=== PATIENT | female | born 1985 | race American Indian/Alaskan Native ===

== ENCOUNTER 2017-07-07 09:26 | Emergency (ER) | payer SELFPAY ==
[2017-07-07 09:38] VITALS: BP 141/84
--- NOTE | 2017-07-07 10:50 | XRay Report ---
LEFT ELBOW THREE VIEWS: 07/07/17 09:26:00 CLINICAL: Pain. FINDINGS: Normal bones, joints and soft tissues. No fracture or dislocation. No joint effusion. IMPRESSION: Normal.
--- NOTE | 2017-07-07 10:51 | XRay Report ---
XRAY LEFT SHOULDER THREE VIEWS: 07/07/17 09:26:00 CLINICAL: Pain FINDINGS: No fracture or dislocation. Normal glenohumeral joint. Normal AC joint. The soft tissues are normal. IMPRESSION: Normal.
--- NOTE | 2017-07-07 10:51 | XRay Report ---
XRAY LEFT HUMERUS TWO VIEWS: 07/07/17 10:00:00 CLINICAL: Pain. FINDINGS: No fracture or dislocation. Normal alignment at the shoulder and elbow. Normal soft tissues. IMPRESSION: Normal.
[2017-07-07] MEDS ORDERED: MOTRIN PO ONE (11:06)
--- NOTE | 2017-07-07 11:35 | Emergency Department Report ---
ED Upper Extremity Inj HPI - General Chief Complaint: Extremity Injury, Upper Stated Complaint: LEFT ARM PAIN Time Seen by Provider: 07/07/17 11:05 Source: patient Mode of arrival: Ambulatory Limitations: No Limitations - History of Present Illness Initial Comments: 31-year-old -[place] female comes in complaining of left shoulder and left arm pain. Patient reports that she fell at home this morning and landed on her left side. Patient reports she hit up against her before frame and fail. She denies hitting her head no nausea no vomiting no loss of consciousness. She reports that her last middle finger is mildly swollen but able to move all fingers. She'll reports a history of asthma no allergies to medications. MD Complaint: Injury to:: left -: hour(s) (3) Other Extremity Injury: Elbow: Left, Arm: Left, Shoulder: Left Place: home Severity scale (0 -10): 10 Improves With: none Worsens With: movement of extremity Context: fall Associated Symptoms: numbness (left hand) - Related Data Previous Rx's Medication Instructions Recorded Last Taken Type Ibuprofen 600 mg PO Q8H 10 Days #30 tablet 07/07/17 Unknown Rx Allergies Allergy/AdvReac Type Severity Reaction Status Date / Time No Known Allergies Allergy Unverified 07/07/17 09:37 ED Review of Systems ROS: Stated complaint: LEFT ARM PAIN Other details as noted in HPI Constitutional: denies: chills, fever Eyes: denies: eye pain, eye discharge, vision change ENT: denies: ear pain, throat pain Respiratory: denies: cough, shortness of breath, wheezing Cardiovascular: denies: chest pain, palpitations Endocrine: no symptoms reported Gastrointestinal: denies: abdominal pain, nausea, diarrhea Genitourinary: denies: urgency, dysuria, discharge Musculoskeletal: arthralgia Skin: denies: rash, lesions Neurological: numbness (left fingers) Psychiatric: denies: anxiety, depression Hematological/Lymphatic: denies: easy bleeding, easy bruising ED Past Medical Hx - Past Medical History Hx Asthma: Yes - Surgical History Past Surgical History?: No - Social History Smoking Status: Current Every Day Smoker Substance Use Type: Alcohol, Marijuana - Medications Home Medications: Home Medications Medication Instructions Recorded Confirmed Last Taken Type Ibuprofen 600 mg PO Q8H 10 Days #30 tablet 07/07/17 Unknown Rx ED Physical Exam - General Limitations: No Limitations General appearance: alert, in no apparent distress - Head Head exam: Present: atraumatic, normocephalic - Eye Eye exam: Present: normal appearance - Respiratory Respiratory exam: Present: normal lung sounds bilaterally. Absent: respiratory distress - Expanded Upper Extremity Exam Left Shoulder Exam: Present: normal inspection, tenderness (anterior and posterior), tenderness over AC joint. Absent: swelling, abrasion, laceration, ecchymosis, deformity, crepidus, dislocation, erythema Upper Arm exam: Present: normal inspection, tenderness. Absent: swelling, abrasion, laceration, ecchymosis, deformity Elbow exam: Present: normal inspection, full ROM. Absent: tenderness, swelling , abrasion, laceration, ecchymosis, deformity Forearm Wrist exam: Present: normal inspection, full ROM Hand Wrist exam: Present: full ROM, tenderness (left middle finger), swelling ( left middle finger), abrasion (left middle finger). Absent: ecchymosis, deformity, crepidus, dislocation Neuro motor exam: Present: wrist extension intact, thumb opposition intact, thumb IP flexion intact, thumb adduction intact, fingers 2-5 abduction intact Neurosensory exam: Present: 2-point discrimination, radial nerve intact, ulnar nerve intact, median nerve intact Vascular: Present: normal capillary refill - Neurological Exam Neurological exam: Present: alert, oriented X3, CN II-XII intact ED Course Vital Signs 07/07/17 09:33 Temperature 98.5 F Pulse Rate 100 H Respiratory 20 Rate Blood Pressure 141/84 O2 Sat by Pulse 100 Oximetry ED Medical Decision Making - Radiology Data Radiology results: report reviewed, image reviewed normal. - Medical Decision Making Patient has been evaluated by this provider fast track. X-ray was done for left humerus left shoulder and left elbow. Which all came out normal. Ibuprofen 600 mg with given the patient for pain managements. I will refer her to orthopedics for possible further evaluation. Patient may need a MRI to r /o out a tear. Patient will be discharged home on ibuprofen 600 mg every 8 hours when necessary. As well as a referral to orthopedics. Patient verbalized understanding Critical care attestation.: If time is entered above; I have spent that time in minutes in the direct care of this critically ill patient, excluding procedure time. ED Disposition Clinical Impression: Left shoulder strain Qualifiers: Encounter type: sequela Qualified Code(s): S46.912S - Strain of unspecified muscle, fascia and tendon at shoulder and upper arm level, left arm, sequela Fall Qualifiers: Encounter type: initial encounter Qualified Code(s): W19.XXXA - Unspecified fall, initial encounter Disposition: TO HOME OR SELFCARE Is pt being admited?: No Does the pt Need Aspirin: No Condition: Stable Instructions: Fall Prevention (ED), Rotator Cuff Injury (ED) Additional Instructions: Take pain medication as prescribed. Follow-up with orthopedic I referred to Dr. Jesse Salazar. Please wear sling for support. Prescriptions: Ibuprofen 600 mg PO Q8H 10 Days #30 tablet Referrals: DANIELLE MOYA MD [Primary Care Provider] - 3-5 Days JESSE SALAZAR MD [Staff Physician] - 3-5 Days Forms: Work/School Release Form(ED)
== END 2017-07-07 12:15 | disposition home or self-care (01) ==
LOC: ED 09:26
DX: S46.912A Strain of unspecified muscle, fascia and tendon at shoulder and upper arm level, left arm, initial encounter (principal); J45.909 Unspecified asthma, uncomplicated; F17.200 Nicotine dependence, unspecified, uncomplicated; F12.10 Cannabis abuse, uncomplicated; W01.10XA Fall on same level from slipping, tripping and stumbling with subsequent striking against unspecified object, initial encounter; Y93.89 Activity, other specified; Y92.009 Unspecified place in unspecified non-institutional (private) residence as the place of occurrence of the external cause; Y99.8 Other external cause status
CPT/HCPCS: 81025; 99284

== ENCOUNTER 2017-08-03 22:32 | Emergency (ER) | payer SELFPAY ==
[2017-08-04 00:54] LABS: Basophils % (Auto) 0.5 % (0.0-1.8); Eosinophils # (Auto) 0.1 K/mm3 (0.0-0.4); Eosinophils % (Auto) 1.3 % (0.0-4.3); Hematocrit 36.2 % (30.3-42.9); Hemoglobin 12.3 gm/dl (10.1-14.3); Lymphocytes # (Auto) 2.8 K/mm3 (1.2-5.4); Lymphocytes % (Auto) 36.2 % (13.4-35.0); Mean Corpuscular HGB Conc 34 % (30-34); Mean Corpuscular Hemoglobin 33 pg (28-32); Mean Corpuscular Volume 98 fl (79-97); Monocytes # (Auto) 0.5 K/mm3 (0.0-0.8); Monocytes % (Auto) 6.4 % (0.0-7.3); Platelet Count 155 K/mm3 (140-440)
[2017-08-04 01:21] LABS: BUN/Creatinine Ratio 22; Blood Urea Nitrogen 13 mg/dL (7-17); Calcium 9.2 mg/dL (8.4-10.2); Hemolysis Index 33
[2017-08-04 01:39] LABS: Bilirubin,Urine NEG (Negative); Blood,Urine LG (Negative); Color,Urine Yellow (Yellow); Mucus,Urine 2+ /HPF; Nitrite,Urine NEG (Negative)
[2017-08-04 01:41] LABS: RBC,Urine > 182.0 /HPF (0.0-6.0)
[2017-08-04 06:09] VITALS: BP 124/86
--- NOTE | 2017-08-04 06:18 | Emergency Department Report ---
ED General Adult HPI - General Chief complaint: Vaginal Bleeding Stated complaint: VAG BLEED, LEG SWELLING Time Seen by Provider: 08/04/17 06:15 Source: patient Mode of arrival: Ambulatory Limitations: No Limitations - History of Present Illness Initial comments: Patient with irregular vaginal bleeding. She also stated that she had some milky discharge from her breasts. She is lying comfortably with her family in her gurney without complaint now. 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 She denies vaginal discharge. -: days(s) Consistency: now resolved Improves with: none Worsens with: none Associated Symptoms: denies other symptoms - Related Data Previous Rx's Medication Instructions Recorded Last Taken Type Ibuprofen 600 mg PO Q8H 10 Days #30 tablet 07/07/17 Unknown Rx Nitrofurantoin Monohyd/M-Cryst 100 mg PO BID #14 capsule 08/04/17 Unknown Rx [Macrobid 100 mg Capsule] Allergies Allergy/AdvReac Type Severity Reaction Status Date / Time No Known Allergies Allergy Unverified 07/07/17 09:37 ED Review of Systems ROS: Stated complaint: VAG BLEED, LEG SWELLING Other details as noted in HPI Constitutional: denies: chills, fever Eyes: denies: eye pain, eye discharge, vision change ENT: denies: ear pain, throat pain Respiratory: denies: cough, shortness of breath, wheezing Cardiovascular: denies: chest pain, palpitations Endocrine: no symptoms reported Gastrointestinal: denies: abdominal pain, nausea, diarrhea Genitourinary: as per HPI, abnormal menses. denies: urgency, dysuria, discharge Musculoskeletal: denies: back pain, joint swelling, arthralgia Skin: denies: rash, lesions Neurological: denies: headache, weakness, paresthesias Psychiatric: denies: anxiety, depression Hematological/Lymphatic: denies: easy bleeding, easy bruising ED Past Medical Hx - Past Medical History Hx Asthma: Yes - Surgical History Past Surgical History?: No - Social History Smoking Status: Current Every Day Smoker Substance Use Type: None, Marijuana - Medications Home Medications: Home Medications Medication Instructions Recorded Confirmed Last Taken Type Ibuprofen 600 mg PO Q8H 10 Days #30 tablet 07/07/17 Unknown Rx Nitrofurantoin Monohyd/M-Cryst 100 mg PO BID #14 capsule 08/04/17 Unknown Rx [Macrobid 100 mg Capsule] ED Physical Exam - General Limitations: No Limitations General appearance: alert, in no apparent distress - Head Head exam: Present: atraumatic, normocephalic - Eye Eye exam: Present: normal appearance. Absent: scleral icterus - ENT ENT exam: Present: mucous membranes moist - Neck Neck exam: Present: normal inspection - Respiratory Respiratory exam: Present: normal lung sounds bilaterally. Absent: respiratory distress - Cardiovascular Cardiovascular Exam: Present: regular rate, normal rhythm. Absent: systolic murmur, diastolic murmur, rubs, gallop - GI/Abdominal GI/Abdominal exam: Present: soft, normal bowel sounds. Absent: distended, tenderness, guarding, rebound, rigid - Extremities Exam Extremities exam: Present: normal inspection - Back Exam Back exam: Present: normal inspection - Neurological Exam Neurological exam: Present: alert, oriented X3, CN II-XII intact. Absent: motor sensory deficit - Psychiatric Psychiatric exam: Present: normal affect, normal mood - Skin Skin exam: Present: warm, dry, intact, normal color. Absent: rash ED Course Vital Signs 08/04/17 08/04/17 08/04/17 00:18 01:07 06:06 Temperature 98.3 F 98.4 F Pulse Rate 67 67 Respiratory 16 20 20 Rate Blood Pressure 129/87 Blood Pressure 124/86 [Right] O2 Sat by Pulse 100 100 Oximetry ED Medical Decision Making - Lab Data Result diagrams: 08/04/17 00:37 08/04/17 00:37 Laboratory Results - last 24 hr 08/04/17 08/04/17 08/04/17 00:37 00:37 00:37 WBC 7.8 RBC 3.70 Hgb 12.3 Hct 36.2 MCV 98 H MCH 33 H MCHC 34 RDW 13.0 L Plt Count 155 Lymph % (Auto) 36.2 H [place] % (Auto) 6.4 Eos % (Auto) 1.3 Baso % (Auto) 0.5 Lymph # 2.8 [place] # 0.5 Eos # 0.1 Baso # 0.0 Seg Neutrophils % 55.6 Seg Neutrophils # 4.3 Sodium Potassium Chloride Carbon Dioxide Anion Gap BUN Creatinine Estimated GFR BUN/Creatinine Ratio Glucose Calcium HCG, Qual Negative Urine Color Urine Turbidity Urine pH Ur Specific [place] Urine Protein Urine Glucose (UA) Urine Ketones Urine Blood Urine Nitrite Urine Bilirubin Urine Urobilinogen Ur Leukocyte Esterase Urine WBC (Auto) Urine RBC (Auto) U Epithel Cells (Auto) Urine Mucus Blood Type B POSITIVE Antibody Screen Negative 08/04/17 08/04/17 00:37 00:59 WBC RBC Hgb Hct MCV MCH MCHC RDW Plt Count Lymph % (Auto) [place] % (Auto) Eos % (Auto) Baso % (Auto) Lymph # [place] # Eos # Baso # Seg Neutrophils % Seg Neutrophils # Sodium 141 Potassium 3.9 Chloride 102.0 Carbon Dioxide 25 Anion Gap 18 BUN 13 Creatinine 0.6 L Estimated GFR > 60 BUN/Creatinine Ratio 22 Glucose 86 Calcium 9.2 HCG, Qual Urine Color Yellow Urine Turbidity Slightly-cloudy Urine pH 6.0 Ur Specific [place] 1.025 Urine Protein 100 mg/dl Urine Glucose (UA) Neg Urine Ketones Neg Urine Blood Lg Urine Nitrite Neg Urine Bilirubin Neg Urine Urobilinogen 2.0 Ur Leukocyte Esterase Tr Urine WBC (Auto) 18.0 H Urine RBC (Auto) > 182.0 U Epithel Cells (Auto) 3.0 Urine Mucus 2+ Blood Type Antibody Screen Critical care attestation.: If time is entered above; I have spent that time in minutes in the direct care of this critically ill patient, excluding procedure time. ED Disposition Clinical Impression: Dysfunctional uterine bleeding, Galactorrhea UTI (urinary tract infection) Qualifiers: Urinary tract infection type: site unspecified Hematuria presence: without hematuria Qualified Code(s): N39.0 - Urinary tract infection, site not specified Disposition: - TO HOME OR SELFCARE Is pt being admited?: No Does the pt Need Aspirin: No Condition: Stable Instructions: Dysfunctional Uterine Bleeding (ED), Urinary Tract Infection in Women (ED) Additional Instructions: Follow-up with your electronic technician. Return any acute change or problem as needed. Rx as directed. Your urine culture report will be ready in 2-3 days. Prescriptions: Nitrofurantoin Monohyd/M-Cryst [Macrobid 100 mg Capsule] 100 mg PO BID #14 capsule Referrals: DANIELLE MOYA MD [Primary Care Provider] - 3-5 Days usual, electronic technician [Other] - 2-3 Days Time of Disposition: 07:00
== END 2017-08-04 07:47 | disposition home or self-care (01) ==
LOC: ED 22:32
DX: N39.0 Urinary tract infection, site not specified (principal); N93.8 Other specified abnormal uterine and vaginal bleeding; O92.6 Galactorrhea; J45.909 Unspecified asthma, uncomplicated; F17.200 Nicotine dependence, unspecified, uncomplicated; F12.10 Cannabis abuse, uncomplicated
CPT/HCPCS: 36415; 80048; 81001; 84703; 85025; 86850; 86900; 86901; 87086; 99283

== ENCOUNTER 2017-10-29 08:21 | Emergency (ER) | payer BC, OTHER ==
[2017-10-29 09:04] LABS: Basophils % (Auto) 0.2 % (0.0-1.8); Eosinophils % (Auto) 0.1 % (0.0-4.3); Hematocrit 39.3 % (30.3-42.9); Hemoglobin 13.3 gm/dl (10.1-14.3); Lymphocytes # (Auto) 1.9 K/mm3 (1.2-5.4); Lymphocytes % (Auto) 12.4 % (13.4-35.0); Mean Corpuscular HGB Conc 34 % (30-34); Mean Corpuscular Hemoglobin 32 pg (28-32); Mean Corpuscular Volume 96 fl (79-97); Monocytes # (Auto) 0.6 K/mm3 (0.0-0.8); Platelet Count 165 K/mm3 (140-440); Red Cell Distribution Width 12.9 % (13.2-15.2)
[2017-10-29 09:18] LABS: Alanine Aminotransferase 10 units/L (7-56); Albumin 4.6 g/dL (3.9-5); BUN/Creatinine Ratio 25; Blood Urea Nitrogen 15 mg/dL (7-17); Calcium 8.7 mg/dL (8.4-10.2); Hemolysis Index 8
[2017-10-29] MEDS ORDERED: ZOFRAN ODT PO ONE (10:19)
[2017-10-29] MEDS ORDERED: TYLENOL PO ONE (10:19)
--- NOTE | 2017-10-29 10:19 | Emergency Department Report ---
ED General Adult HPI - General Chief complaint: Nausea/Vomiting/Diarrhea Stated complaint: NAUSEA/VOMITING Time Seen by Provider: 10/29/17 10:13 Source: patient, RN notes reviewed Mode of arrival: Ambulatory Limitations: No Limitations - History of Present Illness Initial comments: This is a 32-year-old female who was previously known to this provider. Patient reports that she is 4, para 1, last menstrual period is September 20 , further reports that her MANAGER PATHOLOGY doctor is "premierjanette." Patient reports no chronic medical conditions, no history of abdominal surgeries. Patient presents to the ER with a complaint of left shoulder pain, resolved vaginal bleeding after mechanical trip and fall last night. Reports landing on her left shoulder and left abdomen. Did not hit her head or neck. Has no weakness, numbness, ataxia. Left shoulder pain is sharp, increases with palpation, range of motion, decreases with rest. Also endorses resolved nausea and vomiting. Admits to mild abdominal cramping and discomfort after fall. No irritative or obstructive urinary symptoms. Patient further reports that she was feeling "fine" prior to the fall last night. -: Sudden Location: abdomen, left, upper extremity Radiation: non-radiation Severity scale (0 -10): 3 Quality: aching Consistency: intermittent Improves with: rest Worsens with: movement Associated Symptoms: nausea/vomiting, other (as per history of present illness) . denies: confusion, chest pain, cough, diaphoresis, fever/chills, headaches, loss of appetite, malaise, rash, seizure, shortness of breath, syncope, weakness - Related Data Previous Rx's Medication Instructions Recorded Last Taken Type Ibuprofen 600 mg PO Q8H 10 Days #30 tablet 07/07/17 Unknown Rx Nitrofurantoin Monohyd/M-Cryst 100 mg PO BID #14 capsule 08/04/17 Unknown Rx [Macrobid 100 mg Capsule] Acetaminophen [Tylenol Arthritis] 650 mg PO Q6HR PRN #30 tablet.er 10/29/17 Unknown Rx Doxylamine Succinate/Vit B6 1 each PO QHS PRN #30 tablet. 10/29/17 Unknown Rx [Matt Davies 10-10 mg Tablet] Winnie Root [Winnie] 250 mg PO QID PRN #30 capsule 10/29/17 Unknown Rx Vit Calc,Iron,Folic 1 each PO QDAY #30 tablet 10/29/17 Unknown Rx [ Vitamins] Allergies Allergy/AdvReac Type Severity Reaction Status Date / Time No Known Allergies Allergy Unverified 07/07/17 09:37 ED Review of Systems ROS: Stated complaint: NAUSEA/VOMITING Other details as noted in HPI Comment: All other systems reviewed and negative Gastrointestinal: abdominal pain Genitourinary: abnormal menses. denies: dysuria Musculoskeletal: arthralgia Neurological: denies: headache, weakness, numbness, paresthesias, confusion, abnormal gait, vertigo ED Past Medical Hx - Past Medical History Previous Medical History?: Yes Hx Asthma: Yes - Surgical History Past Surgical History?: Yes Additional Surgical History: Rhodelia tooth - Social History Smoking Status: Former Smoker Substance Use Type: Alcohol - Medications Home Medications: Home Medications Medication Instructions Recorded Confirmed Last Taken Type Ibuprofen 600 mg PO Q8H 10 Days #30 tablet 07/07/17 Unknown Rx Nitrofurantoin Monohyd/M-Cryst 100 mg PO BID #14 capsule 08/04/17 Unknown Rx [Macrobid 100 mg Capsule] Acetaminophen [Tylenol Arthritis] 650 mg PO Q6HR PRN #30 tablet.er 10/29/17 Unknown Rx Doxylamine Succinate/Vit B6 1 each PO QHS PRN #30 tablet.dr 10/29/17 Unknown Rx [Matt Davies 10-10 mg Tablet] Winnie Root [Winnie] 250 mg PO QID PRN #30 capsule 10/29/17 Unknown Rx Vit Calc,Iron,Folic 1 each PO QDAY #30 tablet 10/29/17 Unknown Rx [ Vitamins] ED Physical Exam - General Limitations: No Limitations General appearance: alert, in no apparent distress - Head Head exam: Present: atraumatic, normocephalic - Eye Eye exam: Present: normal appearance, PERRL, EOMI, other (visual acuity intact to finger counting, color perception, reading at a close distance). Absent: nystagmus - ENT ENT exam: Present: normal exam, normal orophraynx, mucous membranes moist, normal external ear exam - Neck Neck exam: Present: normal inspection, full ROM - Respiratory Respiratory exam: Present: normal lung sounds bilaterally. Absent: respiratory distress - Cardiovascular Cardiovascular Exam: Present: regular rate, normal rhythm, normal heart sounds. Absent: bradycardia, tachycardia, irregular rhythm, systolic murmur, diastolic murmur, rubs, gallop - GI/Abdominal GI/Abdominal exam: Present: soft, normal bowel sounds. Absent: distended, tenderness, guarding, rebound, rigid, pulsatile mass - External exam: Present: normal external exam Speculum exam: Present: other (escorted by nurse Juana Mac). Absent: cervical discharge, vaginal bleeding, foreign body - Extremities Exam Extremities exam: Present: normal inspection, full ROM, tenderness, normal capillary refill, other (2+ pulses noted in the bilateral upper and lower extremities. The compartments are soft. The pelvis is stable. There is no long bony tenderness in the right upper extremity, or in the bilateral lower extremities. Left shoulder has reproducible bony tenderness to palpation. There is full passive and active range of motion to the bilateral wrists, elbows. There is no tenderness in the bilateral snuffboxes. Patient's is able to abduction and elevate left shoulder to 170, external rotation is limited secondary to pain, internal rotation is limited secondary to pain.). Absent: pedal edema, joint swelling, calf tenderness - Back Exam Back exam: Present: normal inspection, full ROM. Absent: paraspinal tenderness , vertebral tenderness - Neurological Exam Neurological exam: Present: alert, oriented X3, CN II-XII intact, normal gait, other (Extraocular movements intact. Tongue midline. No facial droop. Facial sensation intact to light touch in the V1, V2, V3 distribution bilaterally. 5 and 5 strength in 4 extremities.. Sensation is intact to light touch in 4 extremities.). Absent: motor sensory deficit - Psychiatric Psychiatric exam: Present: normal affect, normal mood - Skin Skin exam: Present: warm, dry, intact, normal color. Absent: rash ED Course Vital Signs 10/29/17 10/29/17 10/29/17 08:30 10:11 10:12 Temperature 98 F Pulse Rate 81 64 Respiratory 18 17 17 Rate Blood Pressure 122/77 Blood Pressure 138/81 [Right] O2 Sat by Pulse 100 100 Oximetry 10/29/17 12:15 Temperature Pulse Rate 74 Respiratory 16 Rate Blood Pressure Blood Pressure 110/76 [Right] O2 Sat by Pulse 100 Oximetry - Reevaluation(s) Reevaluation #1: 10/29/17 11:05 Differential diagnosis, including but not limited to: Shoulder sprain, shoulder strain, dislocation, fracture, mechanical fall, threatened miscarriage Assessment and plan: 32-year-old female with a primary complaint of left shoulder pain, resolved vaginal bleeding after mechanical fall. Patient is alert and oriented 3, clinically sober, has a GCS of 15, with an NIH score of 0. Patient is clinically sober at this time. The cervical spine is cleared through nexus and kazakh c spine rule Extensive discussion had with patient regarding risks, benefits, alternatives of left shoulder x-ray, she gives informed consent to have left shoulder x-ray performed. Nausea and vomiting have resolved, patient is medicated with Tylenol and Zofran orally. Quantitative hCG, type and screen, pelvic ultrasound is pending. Reevaluation #2: 10/29/17 13:11 Ultrasound demonstrates intrauterine . X-ray of the shoulder demonstrates no fracture or dislocation. Vital signs stable. Tolerating oral feeds. Patient will be discharged at this time. ED Medical Decision Making - Lab Data Result diagrams: 10/29/17 08:56 10/29/17 08:53 Vital Signs 10/29/17 10/29/17 10/29/17 08:30 10:11 10:12 Temperature 98 F Pulse Rate 81 64 Respiratory 18 17 17 Rate Blood Pressure 122/77 Blood Pressure 138/81 [Right] O2 Sat by Pulse 100 100 Oximetry Labs 10/29/17 10/29/17 10/29/17 08:53 08:56 09:55 WBC 15.4 H RBC 4.10 Hgb 13.3 Hct 39.3 MCV 96 MCH 32 MCHC 34 RDW 12.9 L Plt Count 165 Lymph % (Auto) 12.4 L [place] % (Auto) 4.0 Eos % (Auto) 0.1 Baso % (Auto) 0.2 Lymph # 1.9 [place] # 0.6 Eos # 0.0 Baso # 0.0 Seg Neutrophils % 83.3 H Seg Neutrophils # 12.8 H Sodium 135 L Potassium 3.9 Chloride 96.5 L Carbon Dioxide 21 L Anion Gap 21 BUN 15 Creatinine 0.6 L Estimated GFR > 60 BUN/Creatinine Ratio 25 Glucose 82 Calcium 8.7 Total Bilirubin 1.10 AST 23 ALT 10 Alkaline Phosphatase 77 Total Protein 7.4 Albumin 4.6 Albumin/Globulin Ratio 1.6 HCG, Quant Urine Color Yellow Urine Turbidity Clear Urine pH 6.0 Ur Specific [place] 1.024 Urine Protein 30 mg/dl Urine Glucose (UA) Neg Urine Ketones 80 Urine Blood Neg Urine Nitrite Neg Urine Bilirubin Neg Urine Urobilinogen < 2.0 Ur Leukocyte Esterase Neg Urine WBC (Auto) 1.0 Urine RBC (Auto) 4.0 U Epithel Cells (Auto) 4.0 Urine Bacteria (Auto) 1+ Urine Mucus Few 10/29/17 10:32 WBC RBC Hgb Hct MCV MCH MCHC RDW Plt Count Lymph % (Auto) [place] % (Auto) Eos % (Auto) Baso % (Auto) Lymph # [place] # Eos # Baso # Seg Neutrophils % Seg Neutrophils # Sodium Potassium Chloride Carbon Dioxide Anion Gap BUN Creatinine Estimated GFR BUN/Creatinine Ratio Glucose Calcium Total Bilirubin AST ALT Alkaline Phosphatase Total Protein Albumin Albumin/Globulin Ratio HCG, Quant 9021 H Urine Color Urine Turbidity Urine pH Ur Specific [place] Urine Protein Urine Glucose (UA) Urine Ketones Urine Blood Urine Nitrite Urine Bilirubin Urine Urobilinogen Ur Leukocyte Esterase Urine WBC (Auto) Urine RBC (Auto) U Epithel Cells (Auto) Urine Bacteria (Auto) Urine Mucus - Radiology Data Radiology results: pending, report reviewed, image reviewed interpreted by me: xr chest negative Print Report Referring Physician: DANIELLE HARDY Patient Name: OSIEL ALARCON Date of : 1985 Sex: Female Report Date: 2017-10-29 Report Status: [place] [address] Ultrasound Report Signed Patient: OSIEL ALARCON MR#: [id number] : 1985 Acct:[id number] Age/Sex: 32 / F ADM Date: 10/29/17 Loc: ED Attending Dr: Ordering Physician: DANIELLE HARDY MD Date of Service: 10/29/17 Procedure(s): US OB transvaginal Accession Number(s): [id number] cc: DANIELLE HARDY MD ULTRASOUND OB LESS THAN 14 WEEKS - TRANSABDOMINAL AND TRANSVAGINAL INDICATION: , vaginal bleeding. Serum beta-hCG 9,021 units. COMPARISON: None similar during this gestation. FINDINGS: Transabdominal and transvaginal pelvic sonography performed in this patient with LMP of 09/20/2017 and estimated menstrual age of 5 weeks and 4 days. A 8.3 x 4.4 x 5 cm uterus demonstrates a single cystic focus along the fundal endometrium without evidence of a pole at this time. Approximately 3 mm yolk sac. Mean gestational sac diameter of 1.1 cm corresponds to 5 weeks and 6 days. No significant pelvic free fluid. Physiologic ovaries, approximately 4.1 x 2.3 x 2.4 cm on the right and 1.8 x 1.2 x 2.3 cm on the left. CONCLUSION: 1. Sonographic findings may represent an intrauterine gestational sac/early estimated at 5 weeks and 6 days with EDC of 06/25/2018, amongst others with viability yet not confirmed at this time. 2. Both ovaries visualized. Please also correlate clinically, with serial serum beta-hCG values and/or followup sonogram, as warranted. Thank you for the opportunity to participate in this patient's care. Transcribed By: RS Dictated By: CORINNE ROBERT MD Electronically Authenticated By: CORINNE ROBERT MD Signed Date/Time: 10/29/17 1214 Critical care attestation.: If time is entered above; I have spent that time in minutes in the direct care of this critically ill patient, excluding procedure time. ED Disposition Clinical Impression: History of vaginal bleeding, Left shoulder pain Disposition: DC-01 TO HOME OR SELFCARE Is pt being admited?: No Does the pt Need Aspirin: No Condition: Stable Instructions: Threatened Miscarriage (ED), Rotator Cuff Injury (ED) Additional Instructions: rest, and avoid heavy lifting. Avoid strenuous physical activity. Take the pain medication, nausea medication as directed. Do not engage in sex or sexual activity until cleared by your private MANAGER PATHOLOGY physician. Follow-up with your MANAGER PATHOLOGY doctor within the next week. Follow up with the primary care doctor or orthopedist within the next week for left shoulder pain. Return to the ER right away with new pain, worsened pain, migration of pain, bleeding more than 2 pads vaginally per hour, lightheadedness, chest pain, shortness of breath, loss of consciousness. Prescriptions: Doxylamine Succinate/Vit B6 [Matt Davies 10-10 mg Tablet] 1 each PO QHS PRN #30 tablet. PRN Reason: Nausea Acetaminophen [Tylenol Arthritis] 650 mg PO Q6HR PRN #30 tablet.er PRN Reason: Pain Winnie Root [Winnie] 250 mg PO QID PRN #30 capsule PRN Reason: Nausea Vit Calc,Iron,Folic [ Vitamins] 1 each PO QDAY #30 tablet Referrals: [facility] [Provider Group] - 3-5 Days [facility] [Provider Group] - 3-5 Days
[2017-10-29 10:40] LABS: Bacteria,Urine 1+ /HPF (Negative); Bilirubin,Urine NEG (Negative); Blood,Urine NEG (Negative); Color,Urine Yellow (Yellow); Mucus,Urine FEW /HPF; Urobilinogen,Urine < 2.0 mg/dL (<2.0)
--- NOTE | 2017-10-29 12:19 | Ultrasound Report ---
ULTRASOUND OB LESS THAN 14 WEEKS - TRANSABDOMINAL AND TRANSVAGINAL INDICATION: , vaginal bleeding. Serum beta-hCG 9,021 units. COMPARISON: None similar during this gestation. FINDINGS: Transabdominal and transvaginal pelvic sonography performed in this patient with LMP of 09/20/2017 and estimated menstrual age of 5 weeks and 4 days. A 8.3 x 4.4 x 5 cm uterus demonstrates a single cystic focus along the fundal endometrium without evidence of a pole at this time. Approximately 3 mm yolk sac. Mean gestational sac diameter of 1.1 cm corresponds to 5 weeks and 6 days. No significant pelvic free fluid. Physiologic ovaries, approximately 4.1 x 2.3 x 2.4 cm on the right and 1.8 x 1.2 x 2.3 cm on the left. CONCLUSION: 1. Sonographic findings may represent an intrauterine gestational sac/early estimated at 5 weeks and 6 days with EDC of 06/25/2018, amongst others with viability yet not confirmed at this time. 2. Both ovaries visualized. Please also correlate clinically, with serial serum beta-hCG values and/or followup sonogram, as warranted. Thank you for the opportunity to participate in this patient's care.
--- NOTE | 2017-10-29 12:19 | XRay Report ---
LEFT SHOULDER RADIOGRAPHS INDICATION: Left shoulder pain, status post fall. COMPARISON: None similar. FINDINGS: Frontal and Y views of the left shoulder, 3 projections demonstrate normal humeral head contour, well positioned against the glenoid. Normal acromioclavicular joint. Preserved scapular contour. Normal visualized soft tissues, left ribs and lung. CONCLUSION: No acute left shoulder radiographic abnormality, as described. Thank you for the opportunity to participate in this patient's care.
[2017-10-29 12:28] VITALS: BP 110/76
== END 2017-10-29 13:37 | disposition home or self-care (01) ==
LOC: ED 08:21
DX: O20.8 Other hemorrhage in early pregnancy (principal); O26.891 Other specified pregnancy related conditions, first trimester; M25.512 Pain in left shoulder; R10.2 Pelvic and perineal pain; O21.9 Vomiting of pregnancy, unspecified; O99.511 Diseases of the respiratory system complicating pregnancy, first trimester; J45.909 Unspecified asthma, uncomplicated; Z3A.01 Less than 8 weeks gestation of pregnancy; Z87.891 Personal history of nicotine dependence; W01.0XXA Fall on same level from slipping, tripping and stumbling without subsequent striking against object, initial encounter; Y93.89 Activity, other specified; Y99.8 Other external cause status; Y92.89 Other specified places as the place of occurrence of the external cause
CPT/HCPCS: 36415; 76801; 76817; 80053; 81001; 84702; 85025; 86850; 86900; 86901; Q0162

== ENCOUNTER 2017-11-15 18:46 | Emergency (ER) | payer BC ==
[2017-11-15] MEDS ORDERED: ZOFRAN ONE (19:37)
[2017-11-15] MEDS ORDERED: NACL 0.9% 1000 ML 1,000 ML ONE (19:38)
[2017-11-15] MEDS ORDERED: ZOFRAN IV ONE (20:00)
[2017-11-15] MEDS ORDERED: NACL 0.9% 1000 ML 1,000 ML IV ONE (20:01)
[2017-11-15 20:22] LABS: Basophils % (Auto) 0.1 % (0.0-1.8); Eosinophils % (Auto) 0.1 % (0.0-4.3); Hematocrit 40.6 % (30.3-42.9); Hemoglobin 14.3 gm/dl (10.1-14.3); Lymphocytes # (Auto) 1.7 K/mm3 (1.2-5.4); Lymphocytes % (Auto) 10.3 % (13.4-35.0); Mean Corpuscular HGB Conc 35 % (30-34); Mean Corpuscular Hemoglobin 34 pg (28-32); Mean Corpuscular Volume 96 fl (79-97); Monocytes # (Auto) 0.8 K/mm3 (0.0-0.8); Monocytes % (Auto) 4.7 % (0.0-7.3); Red Blood Count 4.24 M/mm3 (3.65-5.03); Red Cell Distribution Width 13.1 % (13.2-15.2)
[2017-11-15 20:27] LABS: Platelet Count 181 K/mm3 (140-440)
[2017-11-15 20:32] LABS: BUN/Creatinine Ratio 22; Blood Urea Nitrogen 11 mg/dL (7-17); Calcium 9.5 mg/dL (8.4-10.2); Hemolysis Index 18
--- NOTE | 2017-11-15 21:18 | Emergency Department Report ---
ED General Adult HPI - General Chief complaint: Nausea/Vomiting/Diarrhea Stated complaint: NAUSEA/VOMITING Time Seen by Provider: 11/15/17 20:38 Source: patient, family Mode of arrival: Ambulatory Limitations: No Limitations - History of Present Illness Initial comments: Mr. Cole is a 32-year-old female was 8 weeks . Estimated due date 06/27/2018. She presents with continuous vomiting after eating breakfast at a restaurant this morning. She states that she eats at this restaurant every other day. She denies fever. She denies diarrhea. She denies current abdominal pain. She felt as if her stomach muscles were tense due to the constant vomiting. She denies any nausea or pain at this time. She received IV fluid and IV Zofran prior to my evaluation. She has been able tolerate water in the ED after treatment. She has been unable to afford antiemetics presribed by ED physician and by personal OBGYN due to health insurance authorization requirements. She has had normal US per OBGYN with intact heart tones. Next appt scheduled this upcoming week. - Related Data Previous Rx's Medication Instructions Recorded Last Taken Type Ibuprofen 600 mg PO Q8H 10 Days #30 tablet 07/07/17 Unknown Rx Nitrofurantoin Monohyd/M-Cryst 100 mg PO BID #14 capsule 08/04/17 Unknown Rx [Macrobid 100 mg Capsule] Acetaminophen [Tylenol Arthritis] 650 mg PO Q6HR PRN #30 tablet.er 10/29/17 Unknown Rx Doxylamine Succinate/Vit B6 1 each PO QHS PRN #30 tablet. 10/29/17 Unknown Rx [Matt Davies 10-10 mg Tablet] Winnie Root [Winnie] 250 mg PO QID PRN #30 capsule 10/29/17 Unknown Rx Vit Calc,Iron,Folic 1 each PO QDAY #30 tablet 10/29/17 Unknown Rx [ Vitamins] Promethazine [Phenergan TAB] 25 mg PO Q6HR PRN #20 tab 11/15/17 Unknown Rx Allergies Allergy/AdvReac Type Severity Reaction Status Date / Time No Known Allergies Allergy Unverified 07/07/17 09:37 ED Review of Systems ROS: Stated complaint: NAUSEA/VOMITING Other details as noted in HPI Comment: All other systems reviewed and negative Constitutional: denies: fever, malaise Respiratory: denies: cough Cardiovascular: denies: chest pain ED Past Medical Hx - Past Medical History Hx Asthma: Yes - Surgical History Additional Surgical History: Arnot tooth - Social History Smoking Status: Never Smoker - Medications Home Medications: Home Medications Medication Instructions Recorded Confirmed Last Taken Type Ibuprofen 600 mg PO Q8H 10 Days #30 tablet 07/07/17 Unknown Rx Nitrofurantoin Monohyd/M-Cryst 100 mg PO BID #14 capsule 08/04/17 Unknown Rx [Macrobid 100 mg Capsule] Acetaminophen [Tylenol Arthritis] 650 mg PO Q6HR PRN #30 tablet.er 10/29/17 Unknown Rx Doxylamine Succinate/Vit B6 1 each PO QHS PRN #30 tablet.dr 10/29/17 Unknown Rx [Dickalee Davies 10-10 mg Tablet] Winnie Root [Winnie] 250 mg PO QID PRN #30 capsule 10/29/17 Unknown Rx Vit Calc,Iron,Folic 1 each PO QDAY #30 tablet 10/29/17 Unknown Rx [ Vitamins] Promethazine [Phenergan TAB] 25 mg PO Q6HR PRN #20 tab 11/15/17 Unknown Rx ED Physical Exam - General Limitations: No Limitations General appearance: alert, in no apparent distress - Head Head exam: Present: atraumatic, normocephalic - Eye Eye exam: Present: normal appearance - ENT ENT exam: Present: mucous membranes moist - Neck Neck exam: Present: normal inspection - Respiratory Respiratory exam: Present: normal lung sounds bilaterally. Absent: respiratory distress, wheezes, rales, rhonchi - Cardiovascular Cardiovascular Exam: Present: regular rate, normal rhythm. Absent: systolic murmur, diastolic murmur, rubs, gallop - GI/Abdominal GI/Abdominal exam: Present: soft, normal bowel sounds. Absent: distended, tenderness, guarding, rebound - Extremities Exam Extremities exam: Present: normal inspection - Back Exam Back exam: Present: normal inspection - Neurological Exam Neurological exam: Present: alert, oriented X3 - Psychiatric Psychiatric exam: Present: normal affect, normal mood - Skin Skin exam: Present: warm, dry, intact, normal color. Absent: rash ED Course Vital Signs 11/15/17 19:27 Temperature 98.8 F Pulse Rate 79 Respiratory 16 Rate Blood Pressure 110/70 O2 Sat by Pulse 98 Oximetry ED Medical Decision Making - Lab Data Result diagrams: 11/15/17 20:02 11/15/17 20:02 Laboratory Results - last 24 hr 11/15/17 11/15/17 11/15/17 20:02 20:02 20:02 WBC 16.5 H RBC 4.24 Hgb 14.3 Hct 40.6 MCV 96 MCH 34 H MCHC 35 H RDW 13.1 L Plt Count 181 Lymph % (Auto) 10.3 L [place] % (Auto) 4.7 Eos % (Auto) 0.1 Baso % (Auto) 0.1 Lymph # 1.7 [place] # 0.8 Eos # 0.0 Baso # 0.0 Seg Neutrophils % 84.8 H Seg Neutrophils # 14.0 H Sodium 135 L Potassium 4.1 Chloride 96.1 L Carbon Dioxide 26 Anion Gap 17 BUN 11 Creatinine 0.5 L Estimated GFR > 60 BUN/Creatinine Ratio 22 Glucose 91 Calcium 9.5 HCG, Quant 757021 H Vital Signs - 24 hr 11/15/17 19:27 Temperature 98.8 F Pulse Rate 79 Respiratory 16 Rate Blood Pressure 110/70 O2 Sat by Pulse 98 Oximetry - Medical Decision Making Ms. Beltran Cole presents with hyperemesis gravidarum. I do not suspect appendicitis or acute inflammatory abdominal process. Elevated white count corresponds to and hyperemesis. She currently does not have any abdominal pain. She does not have any tenderness on exam. Critical care attestation.: If time is entered above; I have spent that time in minutes in the direct care of this critically ill patient, excluding procedure time. ED Disposition Clinical Impression: Hyperemesis gravidarum Disposition: DC-01 TO HOME OR SELFCARE Is pt being admited?: No Does the pt Need Aspirin: No Condition: Stable Instructions: Hyperemesis Gravidarum (ED) Prescriptions: Promethazine [Phenergan TAB] 25 mg PO Q6HR PRN #20 tab PRN Reason: Nausea Time of Disposition: 21:22
[2017-11-15 21:31] VITALS: BP 115/74
== END 2017-11-15 21:29 | disposition home or self-care (01) ==
LOC: ED 18:46
DX: O21.0 Mild hyperemesis gravidarum (principal); Z3A.08 8 weeks gestation of pregnancy; J45.909 Unspecified asthma, uncomplicated
CPT/HCPCS: 36415; 80048; 82962; 84702; 85025; 96361; 96374; 99283; J2405; J7030

== ENCOUNTER 2018-01-02 12:02 | Inpatient (IN) | payer BC ==
--- NOTE | 2018-01-02 12:09 | History and Physical Report ---
History of Present Illness Date of examination: 01/02/18 Date of admission: 01/02/18 12:02 Chief complaint: nausea and vomiting History of present illness: Pt is a 32 year old -Swiss female JUICE 06/27/18 at 14w6d with a h/o admission for hyperemesis in November 2017 who presents with three days of worsening nausea and vomiting with inability to tolerate liquid or solid oral intake. She attempted to take the prescribed Phenergan and Reglan, but she was unable to keep the medicine down. She denies any vaginal bleeding or abdominal pain. Pt refuses to be given Zofran because she is concerned about potential defects. Past History Past Medical History: no pertinent history Past Surgical History: other (wisdom tooth extractions ) MD PSYCHIATRY History: chlamydia (remote history), gonorrhea (remote history) Family/Genetic History: diabetes, heart disease, hypertension, cancer Social history: no significant social history - Obstetrical History Expected Date of Delivery: 06/27/18 Actual Gestation: 14 Week(s) 6 Day(s) : 3 Para: 1 Hx # Term Pregnancies: 1 Number of Pregnancies: 0 Spontaneous Abortions: 1 Induced : 0 Number of Living Children: 1 Medications and Allergies Allergies Allergy/AdvReac Type Severity Reaction Status Date / Time No Known Allergies Allergy Unverified 07/07/17 09:37 Home Medications Medication Instructions Recorded Confirmed Last Taken Type Ibuprofen 600 mg PO Q8H 10 Days #30 tablet 07/07/17 12/04/17 Unknown Rx Nitrofurantoin Monohyd/M-Cryst 100 mg PO BID #14 capsule 08/04/17 12/04/17 Unknown Rx [Macrobid 100 mg Capsule] Acetaminophen [Tylenol Arthritis] 650 mg PO Q6HR PRN #30 tablet.er 10/29/17 Unknown Rx Doxylamine Succinate/Vit B6 1 each PO QHS PRN #30 tablet.dr 10/29/17 12/04/17 Unknown Rx [Matt Davies 10-10 mg Tablet] Winnie Root [Winnie] 250 mg PO QID PRN #30 capsule 10/29/17 12/04/17 Unknown Rx Vit Calc,Iron,Folic 1 each PO QDAY #30 tablet 10/29/17 12/04/17 Unknown Rx [ Vitamins] Promethazine [Phenergan TAB] 25 mg PO Q6HR PRN #20 tab 11/15/17 12/04/17 Unknown Rx Metoclopramide [Reglan] 10 mg PO TID #30 tab 12/06/17 Unknown Rx Nitrofurantoin Monohyd/M-Cryst 100 mg PO BID #14 12/06/17 Unknown Rx [Macrobid 100 mg Capsule] Ondansetron [Zofran TAB] 8 mg PO TID #30 tablet 12/06/17 Unknown Rx Promethazine [Phenergan TAB] 25 mg PO Q8HR PRN #30 tab 12/06/17 Unknown Rx Active Meds: Active Medications Dextrose/Lactated Ringer's (D5lr) 1,000 mls @ 500 mls/hr IV DIRECT GAEL Stop: 01/03/18 14:59 Dextrose/Lactated Ringer's (D5lr) 1,000 mls @ 150 mls/hr IV DIRECT GAEL Metoclopramide HCl (Reglan) 10 mg IV Q6H GAEL Review of Systems All systems: negative - Physical Exam Breasts: Positive: deferred Cardiovascular: Regular rate Lungs: Positive: Clear to auscultation Abdomen: Positive: soft Extremities: Positive: normal Results All other labs normal. Assessment and Plan A: IUP at 14w6d Hyperemesis Gravidarum P: Admit to antepartum service IV antiemetics CBC, CMP, TSH, Amylase Lipase Replete potassium as needed Prepare for Reglan pump
[2018-01-02] MEDS: D5LR 1,000 ML IV SCH ×3 (13:30→18:15)
[2018-01-02] MEDS: PHENERGAN PR SCH (14:00)
[2018-01-02] MEDS: REGLAN IV SCH ×2 (14:00→21:01)
[2018-01-02 14:11] LABS: Basophils % (Auto) 0.2 % (0.0-1.8); Eosinophils % (Auto) 0.4 % (0.0-4.3); Hematocrit 34.3 % (30.3-42.9); Hemoglobin 11.9 gm/dl (10.1-14.3); Lymphocytes # (Auto) 1.7 K/mm3 (1.2-5.4); Lymphocytes % (Auto) 16.3 % (13.4-35.0); Mean Corpuscular HGB Conc 35 % (30-34); Mean Corpuscular Hemoglobin 34 pg (28-32); Mean Corpuscular Volume 98 fl (79-97); Monocytes # (Auto) 0.5 K/mm3 (0.0-0.8); Monocytes % (Auto) 5.1 % (0.0-7.3); Platelet Count 175 K/mm3 (140-440); Red Blood Count 3.52 M/mm3 (3.65-5.03)
[2018-01-02 14:29] LABS: BUN/Creatinine Ratio 16; Blood Urea Nitrogen 8 mg/dL (7-17); Calcium 9.1 mg/dL (8.4-10.2); Hemolysis Index 3
[2018-01-02 14:30] LABS: Alanine Aminotransferase 32 units/L (7-56); BUN/Creatinine Ratio 16; Blood Urea Nitrogen 8 mg/dL (7-17); Hemolysis Index 6; Lipase 38 units/L (13-60)
[2018-01-02 14:37] LABS: Hepatitis A Antibody IgM Non-Reactive (NonReactive); Hepatitis B Core IgM Non-Reactive (NonReactive); Hepatitis B Surface Antigen Non-Reactive (Negative); Hepatitis C Virus Antibody Non-Reactive (NonReactive)
[2018-01-02] MEDS: KCL 10MEQ/100ML 10 MEQ/100 ML BAG IV SCH ×2 (16:15→17:30)
[2018-01-02 18:13] LABS: Bacteria,Urine 1+ /HPF (Negative); Bilirubin,Urine NEG (Negative); Blood,Urine NEG (Negative); Color,Urine Yellow (Yellow); Mucus,Urine FEW /HPF; Protein,Urine <15 mg/dL mg/dL (Negative); Urobilinogen,Urine < 2.0 mg/dL (<2.0); WBC,Urine < 1.0 /HPF (0.0-6.0)
[2018-01-03] MEDS: D5LR 1,000 ML IV SCH ×3 (00:20→07:12)
[2018-01-03] MEDS: REGLAN IV SCH ×2 (02:38→09:11)
[2018-01-03] MEDS: PHENERGAN PR SCH ×2 (03:57→07:15)
[2018-01-03] MEDS ORDERED: TRANSDERM-SCOP TD ONE (08:03)
--- NOTE | 2018-01-03 09:06 | Progress Note ---
Assessment and Plan A: IUP at 15 weeks hyperemesis, resolve P: Progress diet Scop Patch D/C home Subjective - Subjective Date of service: 01/03/18 Patient reports: other (Denies N/v since admission), no new complaints Objective - Vital Signs Vital Signs: Vital Signs - 12hr 01/03/18 01/03/18 00:15 04:45 Temperature 98.7 F 98.6 F Pulse Rate 61 89 Respiratory 18 18 Rate Blood Pressure 98/61 89/39 [Left] - Exam Breasts: deferred Abdomen: Present: normal appearance, soft. Absent: distention - Labs Labs: Abnormal Labs 01/02/18 01/02/18 01/02/18 13:34 13:34 13:34 RBC 3.52 L MCV 98 H MCH 34 H MCHC 35 H RDW 13.0 L Seg Neutrophils % 78.0 H Seg Neutrophils # 8.3 H Sodium 135 L 135 L Chloride 96.1 L 96.8 L Creatinine 0.5 L 0.5 L Amylase 369 H Laboratory Results - last 24 hr 01/02/18 01/02/18 01/02/18 13:34 13:34 13:34 WBC 10.6 RBC 3.52 L Hgb 11.9 Hct 34.3 MCV 98 H MCH 34 H MCHC 35 H RDW 13.0 L Plt Count 175 Lymph % (Auto) 16.3 [place] % (Auto) 5.1 Eos % (Auto) 0.4 Baso % (Auto) 0.2 Lymph # 1.7 [place] # 0.5 Eos # 0.0 Baso # 0.0 Seg Neutrophils % 78.0 H Seg Neutrophils # 8.3 H Sodium 135 L Potassium 4.0 Chloride 96.1 L Carbon Dioxide 25 Anion Gap 18 BUN 8 Creatinine 0.5 L Estimated GFR > 60 BUN/Creatinine Ratio 16 Glucose 69 Calcium 9.0 Total Bilirubin 0.50 AST 36 ALT 32 Alkaline Phosphatase 68 Total Protein 6.6 Albumin 4.0 Albumin/Globulin Ratio 1.5 Amylase 369 H Lipase 38 TSH 0.761 Urine Color Urine Turbidity Urine pH Ur Specific [place] Urine Protein Urine Glucose (UA) Urine Ketones Urine Blood Urine Nitrite Urine Bilirubin Urine Urobilinogen Ur Leukocyte Esterase Urine WBC (Auto) Urine RBC (Auto) U Epithel Cells (Auto) Urine Bacteria (Auto) Urine Mucus Hepatitis A IgM Ab Hep Bs Antigen Hep B Core IgM Ab Hepatitis C Antibody 01/02/18 01/02/18 01/02/18 13:34 13:34 17:40 WBC RBC Hgb Hct MCV MCH MCHC RDW Plt Count Lymph % (Auto) [place] % (Auto) Eos % (Auto) Baso % (Auto) Lymph # [place] # Eos # Baso # Seg Neutrophils % Seg Neutrophils # Sodium 135 L Potassium 4.0 Chloride 96.8 L Carbon Dioxide 25 Anion Gap 17 BUN 8 Creatinine 0.5 L Estimated GFR > 60 BUN/Creatinine Ratio 16 Glucose 68 Calcium 9.1 Total Bilirubin AST ALT Alkaline Phosphatase Total Protein Albumin Albumin/Globulin Ratio Amylase Lipase TSH Urine Color Yellow Urine Turbidity Clear Urine pH 7.0 Ur Specific [place] 1.012 Urine Protein <15 mg/dl Urine Glucose (UA) >=500 Urine Ketones 20 Urine Blood Neg Urine Nitrite Neg Urine Bilirubin Neg Urine Urobilinogen < 2.0 Ur Leukocyte Esterase Neg Urine WBC (Auto) < 1.0 Urine RBC (Auto) 4.0 U Epithel Cells (Auto) 1.0 Urine Bacteria (Auto) 1+ Urine Mucus Few Hepatitis A IgM Ab Non-reactive Hep Bs Antigen Non-reactive Hep B Core IgM Ab Non-reactive Hepatitis C Antibody Non-reactive 01/03/18 05:15 WBC RBC Hgb Hct MCV MCH MCHC RDW Plt Count Lymph % (Auto) [place] % (Auto) Eos % (Auto) Baso % (Auto) Lymph # [place] # Eos # Baso # Seg Neutrophils % Seg Neutrophils # Sodium Potassium Chloride Carbon Dioxide Anion Gap BUN Creatinine Estimated GFR BUN/Creatinine Ratio Glucose Calcium Total Bilirubin AST ALT Alkaline Phosphatase Total Protein Albumin Albumin/Globulin Ratio Amylase Lipase TSH Urine Color Urine Turbidity Urine pH Ur Specific [place] Urine Protein Urine Glucose (UA) Urine Ketones Neg Urine Blood Urine Nitrite Urine Bilirubin Urine Urobilinogen Ur Leukocyte Esterase Urine WBC (Auto) Urine RBC (Auto) U Epithel Cells (Auto) Urine Bacteria (Auto) Urine Mucus Hepatitis A IgM Ab Hep Bs Antigen Hep B Core IgM Ab Hepatitis C Antibody
--- NOTE | 2018-01-03 09:07 | Discharge Summary ---
Providers - Providers Date of Admission: 01/02/18 12:35 Date of discharge: 01/03/18 Attending physician: OLIVE OLIVA 01/02/18 12:05 Consult to Dietitian/Nutrition [CONS] Routine Physician Instructions: Reason For Exam: Reason for Consult: hyper grav Reason for Consult: hyperemesis 01/02/18 12:58 Consult to Case Management [CONS] Routine Services Needed at Discharge: Student Success Counselor Notified:: yes cleveur order Phone number called:: [phone] Additional Physician Instructions: Pt needs a Reglan pump. She has failed oral medication. This is her second admission Primary care physician: NEVILLE MATIAS MD Hospitalization Reason for admission: other (15 weeks hyperemesis) Condition at discharge: Good Disposition: DC-01 TO HOME OR SELFCARE Plan - Provider Discharge Summary Activity: routine, no sex for 6 weeks, no heavy lifting 4 weeks, no strenuous exercise Diet: routine Instructions: routine Additional instructions: [] Smoking cessation referral if applicable(refer to patient education folder for contact #) [] Refer to [facility] Booklet Call your doctor immediately for: * Fever > 100.5 * Heavy vaginal bleeding ( >1 pad per hour) * Severe persistent headache * Shortness of breath * Reddened, hot, painful area to leg or breast * Drainage or odor from incision. * Keep incision clean and dry at all times and follow doctor's instructions regarding bathing/showering - Follow up plan Follow up: NEVILLE MATIAS MD [Primary Care Provider] -
[2018-01-03] MEDS ORDERED: PRENATAL VITAMIN PO SCH (10:00)
[2018-01-03 13:19] VITALS: BP 115/66
== END 2018-01-03 14:20 | disposition home or self-care (01) | DRG 781 ==
LOC: UNDOADMIN 12:02 → 3A 12:02 → OB 12:35
PROVIDERS: ADMIT Obstetrics & Gynecology; ATTEND Obstetrics & Gynecology
DX: O21.0 Mild hyperemesis gravidarum (principal); Z3A.14 14 weeks gestation of pregnancy; Z82.49 Family history of ischemic heart disease and other diseases of the circulatory system; Z83.3 Family history of diabetes mellitus; Z80.9 Family history of malignant neoplasm, unspecified; Z79.899 Other long term (current) drug therapy
CPT/HCPCS: 36415; 80048; 80053; 80074; 81001; 82010; 82150; 83690; 84443; 85025; J2765; J3480; J7121

== ENCOUNTER 2018-05-01 12:00 | Outpatient (CLI) | payer BC ==
[2018-05-01] MEDS ORDERED: NACL 0.9% 1000 ML 1,000 ML ONE (12:18)
[2018-05-01] MEDS ORDERED: NACL 0.9% 1000 ML 1,000 ML IV ONE (13:01)
[2018-05-01] MEDS ORDERED: REGLAN IV ONE (13:02)
[2018-05-01] MEDS ORDERED: LACTATED RINGERS 500 ML IV ONE (14:34)
== END 2018-05-01 14:30 | disposition home or self-care (01) ==
LOC: TRG 12:00
PROVIDERS: ATTEND Obstetrics & Gynecology
DX: O47.03 False labor before 37 completed weeks of gestation, third trimester (principal); Z3A.32 32 weeks gestation of pregnancy
CPT/HCPCS: J2765; J7030

== ENCOUNTER 2019-08-13 09:48 | Emergency (ER) | payer SELFPAY ==
[2019-08-13 10:00] VITALS: BP 124/84
--- NOTE | 2019-08-13 11:35 | Event Note ---
ED Screening Note Date of service: 08/13/19 Time: 11:32 ED Screening Note: 34 y o f presents with chest pressure and tight pain started this morning while driving also cc of dizziness with nausea PMH: none LMP:early june This initial assessment/diagnostic orders/clinical plan/treatment(s) is/are subject to change based on patients health status, clinical progression and re- assessment by fellow clinical providers in the ED. Further treatment and workup at subsequent clinical providers discretion. Patient/guardian urged not to elope from the ED as their condition may be serious if not clinically assessed and managed. Initial orders include: labs FS
[2019-08-13 12:19] LABS: Basophils % (Auto) 0.3 % (0.0-1.8); Eosinophils % (Auto) 0.1 % (0.0-4.3); Hematocrit 40.9 % (30.3-42.9); Hemoglobin 14.2 gm/dl (10.1-14.3); Lymphocytes # (Auto) 1.6 K/mm3 (1.2-5.4); Lymphocytes % (Auto) 11.8 % (13.4-35.0); Mean Corpuscular HGB Conc 35 % (30-34); Mean Corpuscular Volume 96 fl (79-97); Monocytes # (Auto) 0.6 K/mm3 (0.0-0.8); Monocytes % (Auto) 4.3 % (0.0-7.3); Platelet Count 187 K/mm3 (140-440); Red Blood Count 4.28 M/mm3 (3.65-5.03); Red Cell Distribution Width 13.5 % (13.2-15.2)
[2019-08-13 12:42] LABS: Bacteria,Urine 2+ /HPF (Negative); Bilirubin,Urine NEG (Negative); Blood,Urine SM (Negative); Color,Urine Yellow (Yellow); Mucus,Urine FEW /HPF; Protein,Urine <15 mg/dL mg/dL (Negative); Urobilinogen,Urine < 2.0 mg/dL (<2.0); WBC,Urine < 1.0 /HPF (0.0-6.0)
[2019-08-13 12:47] LABS: Alanine Aminotransferase 9 units/L (7-56); BUN/Creatinine Ratio 24; Blood Urea Nitrogen 17 mg/dL (7-17); Calcium 9.7 mg/dL (8.4-10.2); Hemolysis Index 4
--- NOTE | 2019-08-13 13:49 | XRay Report ---
CHEST 2 VIEWS INDICATION / CLINICAL INFORMATION: CHEST PAIN. COMPARISON: None available. FINDINGS: SUPPORT DEVICES: None. HEART / MEDIASTINUM: No significant abnormality. LUNGS / PLEURA: No significant pulmonary or pleural abnormality. No pneumothorax. ADDITIONAL FINDINGS: No significant additional findings. IMPRESSION: 1. No acute abnormality of the chest. Signer Name: Honorio Wetzel MD Signed: 08/13/2019 1:44 PM Workstation Name: [id number]
[2019-08-13] MEDS ORDERED: SODIUM CHLORIDE 0.9% 1000 ML 1,000 ML IV ONE (14:18)
--- NOTE | 2019-08-13 14:19 | Emergency Department Report ---
ED Syncope HPI - General Chief Complaint: Chest Pain Stated Complaint: CHEST PAIN VOMITTING BLACKOUTS Time Seen by Provider: 08/13/19 14:17 Source: patient, family - History of Present Illness Initial Comments: 34 YO FEMALE COMES TO ER AFTER "BLACKING OUT" WHILE DRIVING TODAY. SHE DID NOT WRECK THE CAR. SHE PULLED OVER AND CALLED HER JOB AND SAID SHE WAS NOT COMING TO WORK. SHE THEN CALLED HER MOTHER WHO CAME TO THE SCENE. SHE IS IN NAD ON EXAM SHE HAS NEVER HAD THIS BEFORE [facility] AMB[facility]AT[facility] RX NONE OCC ETOH/CIG DENIES DRUGS ENDORSED CP AT THE TIME. NONE NOW. NO SOB. NO FEVER OR CHILLS. NO HEADACHE. NO ABD PAIN. NO BACK PAIN. NO TRAUMA. Timing/Prior Episodes: no prior history Context: sitting Loss of Consciousness: no loss of consciousness Current Symptoms: back to normal - Related Data Allergies/Adverse Reactions: Allergies No Known Allergies Allergy (Verified 06/05/18 16:43) Home Medications: Ambulatory Orders Vit Calc,Iron,Folic [ Vitamins] 1 each PO QDAY #30 tablet 10/29/17 Famotidine [Pepcid] 1 tab PO PRN 06/07/18 Ibuprofen [Motrin] 800 mg PO Q8HR PRN #30 tablet 06/09/18 oxyCODONE /ACETAMINOPHEN [Percocet 5/325] 1 tab PO Q6HR PRN #40 tablet 06/09/18 ED Review of Systems ROS: Stated complaint: CHEST PAIN VOMITTING BLACKOUTS Other details as noted in HPI Comment: All other systems reviewed and negative ED Past Medical Hx - Past Medical History Previous Medical History?: No Hx Hypertension: No Hx Heart Attack/AMI: Yes (1st cousin) Hx Congestive Heart Failure: No Hx Diabetes: No Hx Deep Vein Thrombosis: No Hx Renal Disease: No Hx Sickle Cell Disease: No Hx Seizures: No Hx Asthma: No Hx COPD: No Hx HIV: No - Surgical History Past Surgical History?: No Additional Surgical History: [place] tooth - Family History Family history: no significant - Social History Smoking Status: Never Smoker Substance Use Type: None - Medications Home Medications: Home Medications Medication Instructions Recorded Confirmed Last Taken Type Vit Calc,Iron,Folic 1 each PO QDAY #30 tablet 10/29/17 06/07/18 06/05/18 Rx [ Vitamins] Famotidine [Pepcid] 1 tab PO PRN 06/07/18 06/07/18 06/06/18 History Ibuprofen [Motrin] 800 mg PO Q8HR PRN #30 tablet 06/09/18 Unknown Rx oxyCODONE /ACETAMINOPHEN [Percocet 1 tab PO Q6HR PRN #40 tablet 06/09/18 Unknown Rx 5/325] ED Physical Exam - General Limitations: No Limitations General appearance: alert, in no apparent distress - Head Head exam: Present: atraumatic, normocephalic - Eye Eye exam: Present: normal appearance - ENT ENT exam: Present: mucous membranes moist - Neck Neck exam: Present: normal inspection - Respiratory Respiratory exam: Present: normal lung sounds bilaterally. Absent: respiratory distress - Cardiovascular Cardiovascular Exam: Present: regular rate, normal rhythm. Absent: systolic murmur, diastolic murmur, rubs, gallop - GI/Abdominal GI/Abdominal exam: Present: soft, normal bowel sounds - Extremities Exam Extremities exam: Present: normal inspection - Back Exam Back exam: Present: normal inspection - Neurological Exam Neurological exam: Present: alert, oriented X3 - Psychiatric Psychiatric exam: Present: normal affect, normal mood - Skin Skin exam: Present: warm, dry, intact, normal color. Absent: rash ED Course Vital Signs 08/13/19 08/13/19 09:56 19:40 Temperature 98.3 F Pulse Rate 60 69 Respiratory 18 16 Rate Blood Pressure 124/84 O2 Sat by Pulse 99 100 Oximetry ED Medical Decision Making - Lab Data Result diagrams: 08/13/19 12:00 08/13/19 12:00 - Radiology Data Radiology results: report reviewed, image reviewed - Medical Decision Making Lab Results 08/13/19 08/13/19 08/13/19 Range/Units 12:00 12:00 12:00 WBC 13.2 H (4.5-11.0) K/mm3 RBC 4.28 (3.65-5.03) M/mm3 Hgb 14.2 (10.1-14.3) gm/dl Hct 40.9 (30.3-42.9) % MCV 96 (79-97) fl MCH 33 H (28-32) pg MCHC 35 H (30-34) % RDW 13.5 (13.2-15.2) % Plt Count 187 (140-440) K/mm3 Lymph % (Auto) 11.8 L (13.4-35.0) % [place] % (Auto) 4.3 (0.0-7.3) % Eos % (Auto) 0.1 (0.0-4.3) % Baso % (Auto) 0.3 (0.0-1.8) % Lymph # 1.6 (1.2-5.4) K/mm3 [place] # 0.6 (0.0-0.8) K/mm3 Eos # 0.0 (0.0-0.4) K/mm3 Baso # 0.0 (0.0-0.1) K/mm3 Seg Neutrophils % 83.5 H (40.0-70.0) % Seg Neutrophils # 11.0 H (1.8-7.7) K/mm3 D-Dimer (0-234) ng/mlDDU Sodium 139 (137-145) mmol/L Potassium 3.9 (3.6-5.0) mmol/L Chloride 100.1 (98-107) mmol/L Carbon Dioxide 21 L (22-30) mmol/L Anion Gap 22 mmol/L BUN 17 (7-17) mg/dL Creatinine 0.7 (0.7-1.2) mg/dL Estimated GFR > 60 ml/min BUN/Creatinine Ratio 24 % Glucose 115 H (65-100) mg/dL Calcium 9.7 (8.4-10.2) mg/dL Total Bilirubin 0.80 (0.1-1.2) mg/dL AST 20 (5-40) units/L ALT 9 (7-56) units/L Alkaline Phosphatase 99 (35-129) units/L Total Protein 8.2 (6.3-8.2) g/dL Albumin 5.0 (3.9-5) g/dL Albumin/Globulin Ratio 1.6 % HCG, Quant < 2 (0-4) mIU/mL Urine Color (Yellow) Urine Turbidity (Clear) Urine pH (5.0-7.0) Ur Specific [place] (1.003-1.030) Urine Protein (Negative) mg/dL Urine Glucose (UA) (Negative) mg/dL Urine Ketones (Negative) mg/dL Urine Blood (Negative) Urine Nitrite (Negative) Urine Bilirubin (Negative) Urine Urobilinogen (<2.0) mg/dL Ur Leukocyte Esterase (Negative) Urine WBC (Auto) (0.0-6.0) /HPF Urine RBC (Auto) (0.0-6.0) /HPF U Epithel Cells (Auto) (0-13.0) /HPF Urine Bacteria (Auto) (Negative) /HPF Urine Mucus /HPF 08/13/19 08/13/19 Range/Units 15:51 Unknown WBC (4.5-11.0) K/mm3 RBC (3.65-5.03) M/mm3 Hgb (10.1-14.3) gm/dl Hct (30.3-42.9) % MCV (79-97) fl MCH (28-32) pg MCHC (30-34) % RDW (13.2-15.2) % Plt Count (140-440) K/mm3 Lymph % (Auto) (13.4-35.0) % [place] % (Auto) (0.0-7.3) % Eos % (Auto) (0.0-4.3) % Baso % (Auto) (0.0-1.8) % Lymph # (1.2-5.4) K/mm3 [place] # (0.0-0.8) K/mm3 Eos # (0.0-0.4) K/mm3 Baso # (0.0-0.1) K/mm3 Seg Neutrophils % (40.0-70.0) % Seg Neutrophils # (1.8-7.7) K/mm3 D-Dimer 178.10 (0-234) ng/mlDDU Sodium (137-145) mmol/L Potassium (3.6-5.0) mmol/L Chloride (98-107) mmol/L Carbon Dioxide (22-30) mmol/L Anion Gap mmol/L BUN (7-17) mg/dL Creatinine (0.7-1.2) mg/dL Estimated GFR ml/min BUN/Creatinine Ratio % Glucose (65-100) mg/dL Calcium (8.4-10.2) mg/dL Total Bilirubin (0.1-1.2) mg/dL AST (5-40) units/L ALT (7-56) units/L Alkaline Phosphatase (35-129) units/L Total Protein (6.3-8.2) g/dL Albumin (3.9-5) g/dL Albumin/Globulin Ratio % HCG, Quant (0-4) mIU/mL Urine Color Yellow (Yellow) Urine Turbidity Clear (Clear) Urine pH 6.0 (5.0-7.0) Ur Specific [place] 1.024 (1.003-1.030) Urine Protein <15 mg/dl (Negative) mg/dL Urine Glucose (UA) Neg (Negative) mg/dL Urine Ketones 80 (Negative) mg/dL Urine Blood Sm (Negative) Urine Nitrite Neg (Negative) Urine Bilirubin Neg (Negative) Urine Urobilinogen < 2.0 (<2.0) mg/dL Ur Leukocyte Esterase Neg (Negative) Urine WBC (Auto) < 1.0 (0.0-6.0) /HPF Urine RBC (Auto) 2.0 (0.0-6.0) /HPF U Epithel Cells (Auto) 1.0 (0-13.0) /HPF Urine Bacteria (Auto) 2+ (Negative) /HPF Urine Mucus Few /HPF Vital Signs 08/13/19 09:56 Temperature 98.3 F Pulse Rate 60 Respiratory 18 Rate Blood Pressure 124/84 O2 Sat by Pulse 99 Oximetry ddimer normal 12 lead normal chest xray normal ua noted wi ketones vss no fever no tachy pt is in nad on my exam ct head-NEG LONG DISCUSSION WITH PT AND FAMILY REGARDING EVENTS AND WORK UP- FAMILY THINKS IT IS STRESS TAKING PO AMBULATORY NAD AT BEDSIDE WILL DC HOME WITH PCP/NEURO AND CARDS FOLLOWUP - Differential Diagnosis ro preg/ro intracranial mass/ ro acs/ ro pe Critical care attestation.: If time is entered above; I have spent that time in minutes in the direct care of this critically ill patient, excluding procedure time. ED Disposition Clinical Impression: Pre-syncope, Ketonuria Disposition: DC-01 TO HOME OR SELFCARE Is pt being admited?: No Does the pt Need Aspirin: No Condition: Stable Instructions: Near Syncope (ED) Additional Instructions: STAY WELL HYDRATED FOLLOW UP WITH MDS BELOW- REFERRALS GIVEN AVOID DRUGS/ALCOHOL/CIGARETTES DO NOT DRIVE UNTIL CLEARED BY NEURO MD ALL NORMAL TODAY- TROP/DIMER/NO UTI/PREG NEG/XRAY CHEST CHANGE POSITIONS SLOWLY Referrals: CHRISTA CH MD [Staff Physician] - 3-5 Days ZANDER KIRK MD [Referring] - 3-5 Days CYNTHIA AUGUSTE MD [Staff Physician] - 3-5 Days Forms: Accompanied Note, Work/School Release Form(ED) Time of Disposition: 16:35
--- NOTE | 2019-08-13 16:53 | Cat Scan Report ---
CT head/brain wo con INDICATION: "BLACK OUTS". TECHNIQUE: All CT scans at this location are performed using the following dose modulation technique: Automated exposure control. CONTRAST: None. COMPARISON: None available. FINDINGS: The ventricular system is appropriate in size and configuration without midline shift. Nega tive for mass, stroke or hemorrhage. Imaged portions the paranasal sinuses are clear. IMPRESSION: Negative CT brain without contrast. Signer Name: Marky Davis MD Signed: 08/13/2019 4:49 PM Workstation Name: [id number]
[2019-08-13] MEDS ORDERED: AZITHROMYCIN 500 MG in SODIUM CHLORIDE 0.9% 250ML 250 ML IV ONE (17:00)
== END 2019-08-13 19:40 | disposition home or self-care (01) ==
LOC: ED 09:48
DX: R55 Syncope and collapse (principal); R82.4 Acetonuria; I25.2 Old myocardial infarction; R11.2 Nausea with vomiting, unspecified; Z79.899 Other long term (current) drug therapy
CPT/HCPCS: 36415; 70450; 71046; 80053; 81001; 84484; 84702; 85025; 85379; 93005; 93010; 96361; 96365; 99284; J0456; J7030; J7050

== ENCOUNTER 2020-08-05 22:08 | Emergency (ER) | payer SELFPAY ==
[2020-08-05 23:32] VITALS: BP 120/62
[2020-08-06 00:05] LABS: HCG Qualitative,Urine Negative (Negative)
[2020-08-06] MEDS ORDERED: ACETAMINOPHEN 325 MG TAB PO ONE (01:00)
--- NOTE | 2020-08-06 01:22 | Cat Scan Report ---
CT head/brain wo con INDICATION / CLINICAL INFORMATION: Head injury, Light fixture fell on the top/back of her head.. TECHNIQUE: Axial CT imaging of the brain was obtained without contrast. Coronal and sagittal reformatted imaging obtained and reviewed. All CT scans at this location are performed using CT dose reduction for JUSTICE Zimmerman by means of automated exposure control. COMPARISON: 08/13/2019 FINDINGS: No intracranial hemorrhage, mass, or midline shift is noted. No extra-axial fluid collection or sugge stion of acute territorial infarction. Ventricular system and basilar cisterns are unremarkable. The visualized paranasal sinuses and mastoid air cells are well aerated and clear. No calvarial fract ure. No soft tissue abnormality. IMPRESSION: 1. Negative noncontrasted head CT scan. Signer Name: Angeles Martinez MD Signed: 08/06/2020 1:17 AM Workstation Name: [id number]
--- NOTE | 2020-08-06 02:13 | Emergency Department Report ---
ED Head Trauma HPI - General Chief complaint: Head Injury Stated complaint: HEAD INJURY Source: patient Mode of arrival: Ambulatory Limitations: No Limitations - History of Present Illness Initial comments: Patient is a 35-year-old -Al[place]ian female with no past medical history who presents to the ED with complaint of acute onset persistent headache and parietal scalp pain, nausea and photophobia after a light fixture fell off the ceiling at work and hit her on the head about 4 hours ago. Patient states that the symptoms have been persistent and constant since the incident occurred 4 hours ago. Patient denies vomiting, dizziness, syncope, seizures, change in vision, neck pain, back pain, abdominal pain, palpitations or shortness of breath. MD Complaint: head injury, head pain, other (Light fixtures hit her on head at work) -: Sudden, hour(s) (4) Mechanism of Injury: work related injury (light fixtures hit her on the head at work) Location: parietal Loss of Consciousness: no Previous Trauma to this Area: No Place: work Radiation: none Severity: severe Severity scale (0 -10): 7 Quality: sharp Consistency: constant Provoking factors: none known Other Injuries: laceration Associated Symptoms: denies other symptoms, nausea. denies: confusion, amnesia, repetitive questioning, vision changes, vomiting, vertigo, syncope, numbness, weakness, tingling, neck pain, other - Related Data Home Medications Medication Instructions Recorded Confirmed Last Taken Famotidine [Pepcid] 1 tab PO PRN 06/07/18 06/07/18 06/06/18 Previous Rx's Medication Instructions Recorded Last Taken Type Vit Calc,Iron,Folic 1 each PO QDAY #30 tablet 10/29/17 06/05/18 Rx [ Vitamins] oxyCODONE /ACETAMINOPHEN [Percocet 1 tab PO Q6HR PRN #40 tablet 06/09/18 Unknown Rx 5/325] Butalb/Acetamin/Caff 50-325-40 1 tab PO Q6HR PRN #12 tab 08/06/20 Unknown Rx [Fioricet 50-325-40] Ibuprofen [Motrin 800 MG tab] 800 mg PO Q8HR PRN #30 tablet 08/06/20 Unknown Rx Allergies/Adverse reactions: Allergies Allergy/AdvReac Type Severity Reaction Status Date / Time No Known Allergies Allergy Verified 06/05/18 16:43 ED Review of Systems ROS: Stated complaint: HEAD INJURY Other details as noted in HPI Constitutional: denies: chills, fever Eyes: denies: eye pain, eye discharge, vision change ENT: denies: ear pain, throat pain Respiratory: denies: cough, shortness of breath, wheezing Cardiovascular: denies: chest pain, palpitations Endocrine: no symptoms reported Gastrointestinal: nausea. denies: abdominal pain, diarrhea Genitourinary: denies: urgency, dysuria, discharge Musculoskeletal: denies: back pain, joint swelling, arthralgia Skin: denies: rash, lesions Neurological: headache. denies: weakness, paresthesias Psychiatric: denies: anxiety, depression Hematological/Lymphatic: denies: easy bleeding, easy bruising ED Past Medical Hx - Past Medical History Previous Medical History?: No Hx Hypertension: No Hx Congestive Heart Failure: No Hx Diabetes: No Hx Deep Vein Thrombosis: No Hx Renal Disease: No Hx Sickle Cell Disease: No Hx Seizures: No Hx Asthma: No Hx COPD: No Hx HIV: No - Surgical History Past Surgical History?: Yes Additional Surgical History: - Social History Smoking Status: Current Every Day Smoker Substance Use Type: None - Medications Home Medications: Home Medications Medication Instructions Recorded Confirmed Last Taken Type Vit Calc,Iron,Folic 1 each PO QDAY #30 tablet 10/29/17 06/07/18 06/05/18 Rx [ Vitamins] Famotidine [Pepcid] 1 tab PO PRN 06/07/18 06/07/18 06/06/18 History oxyCODONE /ACETAMINOPHEN [Percocet 1 tab PO Q6HR PRN #40 tablet 06/09/18 Unknown Rx 5/325] Butalb/Acetamin/Caff 50-325-40 1 tab PO Q6HR PRN #12 tab 08/06/20 Unknown Rx [Fioricet 50-325-40] Ibuprofen [Motrin 800 MG tab] 800 mg PO Q8HR PRN #30 tablet 08/06/20 Unknown Rx ED Physical Exam - General Limitations: No Limitations General appearance: alert, in no apparent distress - Head Head exam: Present: other (Palpable localized parietal scalp tenderness) - Eye Eye exam: Present: normal appearance, PERRL, EOMI Pupils: Present: normal accommodation - ENT ENT exam: Present: normal exam, normal orophraynx, mucous membranes moist, TM's normal bilaterally, normal external ear exam - Neck Neck exam: Present: normal inspection, full ROM - Respiratory Respiratory exam: Present: normal lung sounds bilaterally. Absent: respiratory distress, wheezes, rales, rhonchi, chest wall tenderness, accessory muscle use, decreased breath sounds, prolonged expiratory - Cardiovascular Cardiovascular Exam: Present: regular rate, normal rhythm, normal heart sounds. Absent: systolic murmur, diastolic murmur, rubs, gallop - GI/Abdominal GI/Abdominal exam: Present: soft, normal bowel sounds. Absent: tenderness, guarding, rebound, hyperactive bowel sounds, hypoactive bowel sounds, organomegaly - Extremities Exam Extremities exam: Present: normal inspection, full ROM, normal capillary refill - Back Exam Back exam: Present: normal inspection, full ROM. Absent: tenderness, CVA tenderness (R), CVA tenderness (L), muscle spasm, paraspinal tenderness, vertebral tenderness, rash noted - Neurological Exam Neurological exam: Present: alert, oriented X3, CN II-XII intact, normal gait, reflexes normal - Psychiatric Psychiatric exam: Present: normal affect, normal mood - Skin Skin exam: Present: warm, dry, intact, normal color. Absent: rash ED Course Vital Signs 08/05/20 23:31 Temperature 98 F Pulse Rate 92 H Respiratory 18 Rate Blood Pressure 120/62 [Left] O2 Sat by Pulse 100 Oximetry - Lab Data Lab Results 08/05/20 Range/Units Unknown Urine HCG, Qual Negative (Negative) - Radiology Data Findings [facility] [address] [place] [address] Cat Scan Report Signed Patient: OSIEL COELHO MR#: [id number] : 1985 Acct:[id number] Age/Sex: 35 / F ADM Date: 08/05/20 Loc: ED Attending Dr: Ordering Physician: BALA HARRINGTON III, MD Date of Service: 08/05/20 Procedure(s): CT head/brain wo con Accession Number(s): [id number] cc: BALA HARRINGTON III, MD CT head/brain wo con INDICATION / CLINICAL INFORMATION: Head injury, Light fixture fell on the top/back of her head.. TECHNIQUE: Axial CT imaging of the brain was obtained without contrast. Coronal and sagittal reformatted imaging obtained and reviewed. All CT scans at this location are performed using CT dose reduction for ALARA by means of automated exposure control. COMPARISON: 08/13/2019 FINDINGS: No intracranial hemorrhage, mass, or midline shift is noted. No extra-axial fluid collection or suggestion of acute territorial infarction. Ventricular system and basilar cisterns are unremarkable. The visualized paranasal sinuses and mastoid air cells are well aerated and clear. No calvarial fracture. No soft tissue abnormality. IMPRESSION: 1. Negative noncontrasted head CT scan. Signer Name: Angeles Martinez MD Signed: 08/06/2020 1:17 AM Workstation Name: [id number] Transcribed By: JR Dictated By: Angeles Martinez MD Electronically Authenticated By: Angeles Martinez MD Signed Date/Time: 08/06/20116 DD/ 4 TD/TT: - Medical Decision Making This is a 35-year-old -Algerian female with no past medical history who presents to the ED with complaint of acute onset persistent headache and parietal scalp pain, nausea and photophobia after a light fixture fell off the ceiling at work and hit her on the head about 4 hours ago. Patient states that the symptoms have been persistent and constant since the incident occurred 4 hours ago. In the ED, patient is alert and oriented x3 and is not in distress. Patient was treated for pain in the ED and head CT scan without contrast showed no acute intracranial abnormalities or hemorrhage. On reevaluation, patient's pain is well controlled medications. Patient will discharge home on medications and advised follow-up with her primary care physician in 3 to 5 days for re evaluation or return to the ED immediately if symptoms get worse. - Differential Diagnosis scalp contusion; intracranial hemorrhage; traumatic headache; concussion - Core Measures AMI Core Measures Followed: No Measure Exclusions: not indicated - NEXUS Criteria Focal neurological deficit present: No Midline spinal tenderness present: No Altered level of consciousness: No Critical care attestation.: If time is entered above; I have spent that time in minutes in the direct care of this critically ill patient, excluding procedure time. ED Disposition Clinical Impression: Acute post-traumatic headache, not intractable, Contusion of scalp, initial encounter, Post-concussion headache Disposition: TO HOME OR SELFCARE Is pt being admited?: No Does the pt Need Aspirin: No Condition: Stable Instructions: Post-Concussion Syndrome, [id number], Facial or Scalp Contusion, [id number], Contusion, [id number] Additional Instructions: A head CT scan without contrast showed no acute intracranial abnormalities or hemorrhage. Therefore take medications with food, drink plenty of fluids and follow-up with your primary care physician in 3 to 5 days for reevaluation. Return to the ED immediately if your symptoms get worse. Prescriptions: Butalb/Acetamin/Caff 50-325-40 [Fioricet 50-325-40] 1 tab PO Q6HR PRN #12 tab PRN Reason: Headache Ibuprofen [Motrin 800 MG tab] 800 mg PO Q8HR PRN #30 tablet PRN Reason: Pain, Moderate (4-6) Referrals: CHRISTA CH MD [Staff Physician] - 3-5 Days Time of Disposition: 02:15 Print Language: WALLISIAN
== END 2020-08-06 02:26 | disposition home or self-care (01) ==
LOC: ED 22:08
DX: S06.0X9A Concussion with loss of consciousness of unspecified duration, initial encounter (principal); S00.03XA Contusion of scalp, initial encounter; F17.200 Nicotine dependence, unspecified, uncomplicated; Z79.899 Other long term (current) drug therapy; W22.8XXA Striking against or struck by other objects, initial encounter; Y93.89 Activity, other specified; Y92.69 Other specified industrial and construction area as the place of occurrence of the external cause; Y99.8 Other external cause status
CPT/HCPCS: 70450; 81025